=== PATIENT | female | born 1945 ===

== ENCOUNTER 2025-02-19 08:45 | Inpatient (IN) | payer OTHER ==
[~2025-02-19] VITALS: Ht 180.3 cm; Wt 88.0 kg
[2025-02-19] MEDS ORDERED: JANUVIA100 MG PO (10:18)
[2025-02-19] MEDS ORDERED: LANTUS SOL100 UNIT/1 (10:19)
[2025-02-19] MEDS ORDERED: ATORVASTATIN CA10 MG PO (10:19)
[2025-02-19] MEDS ORDERED: FARXIGA10 MG PO (10:19)
[2025-02-19] MEDS ORDERED: IRBESARTAN-HCT1 EACH PO (10:20)
[2025-02-19] MEDS ORDERED: LEVO-T50 MCG PO (10:20)
[2025-02-19] MEDS ORDERED: NORVASC2.5 MG PO (10:20)
[2025-02-19] MEDS ORDERED: TOPROL XL25 M1 PO (10:21)
[2025-02-19] MEDS ORDERED: LUMIGAN2.5 M1 OP (10:21)
[2025-02-19] MEDS ORDERED: PENTOXIFYLLINE400 MG PO (10:22)
[2025-02-19 10:52] VITALS: BP 143/75
[2025-02-19 10:55] VITALS: BP 160/84
[2025-02-19 11:05] LABS: URINE APPEARANCE Cloudy; URINE BILIRRUBIN Negative (NEGATIVE); URINE BLOOD Negative; URINE COLOR Yellow; URINE KETONE Negative (NEGATIVE); URINE LEUKOCYTE Negative; URINE NITRATE Negative; URINE PROTEIN Negative (NEGATIVE); URINE UROBILINOGEN 0.2 E.U./dl
[2025-02-19 11:10] LABS: URINE BACTERIA 2111.8 uL (0.0-1933); URINE EPITHELIAL CELLS 161.7 uL (0.0-38.8); URINE WBC 14.1 uL (0.0-23.2)
[2025-02-19 11:12] LABS: URINE CAST 0.14 uL (0.0-1.40); URINE GLUCOSE 500 MG/DL (NEGATIVE); URINE RBC 0.7 uL (0.0-20.8)
[2025-02-19 11:21] LABS: BASO % 0.4 % (0.1-1.2); EOS # 0.18 (0.04-0.54); EOS % 1.9 % (0.7-7.0); LYMPH # 2.38 (1.18-3.74); LYMPH % 24.9 % (19.3-53.1); MEAN PLATELET VOLUME 11.80 fl (9.4-12.4); MONO # 0.76 (0.24-0.82); MONO % 8.0 % (4.7-12.5); NEUT # 6.14 (1.56-6.13); NEUT % 64.4 % (34.0-71.1); RED CELL DISTRIBUTION WIDTH 14.1 % (11.6-14.4)
[2025-02-19 12:23] LABS: ALT/SGPT 16.0 U/L (12-78); AST/SGOT 14.0 U/L (15-37); BILIRUBIN TOTAL 0.61 mg/dL (0.3-1.2); BUN CREA RATIO 22.0 (7.0-25.0); CREATININE SERUM 1.57 mg/dL (0.55-1.02); GFR 31.7; GLOBULINA 3.9 G/DL (2.4-3.5); GLUCOSE FASTING 100.0 mg/dL (65-100); OSMOLALITY SERUM 293.0 MOSM/KG (275-295)
[2025-02-19 12:55] LABS: INR 1.08
[2025-02-27 10:03] LABS: RH POSITIVE
[2025-02-27] MEDS ORDERED: TRANEXAMIC ACID 100MG/1ML (1000MG) AMPUL IV ONE (11:15)
[2025-02-27] MEDS ORDERED: ISOPROPYL ALCOHOL 30 ML OUNCE TOP ONE (11:15)
[2025-02-27] MEDS ORDERED: CEFAZOLIN SODIUM 1,000 MG VIAL IV ONE (11:15)
[2025-02-27] MEDS ORDERED: ONDANSETRON HCL 2 MG/ML VIAL IV PRN (12:15)
[2025-02-27] MEDS ORDERED: INSULIN LISPRO 1,000 UNIT/10 ML UNITS SUBCUTANEO PRN (15:30)
[2025-02-27] MEDS ORDERED: ACETAMINOPHEN 500 MG GEL..CAP PO PRN (15:30)
[2025-02-27] MEDS ORDERED: hydrALAZINE HCL 20 MG VIAL IV PRN (15:30)
[2025-02-27] MEDS ORDERED: DEXTROSE 50 % IN WATER 0.5 G/ML VIAL IV PRN (15:30)
[2025-02-27] MEDS ORDERED: MORPHINE SULFATE 4 MG/ML VIAL IV ONE (16:35)
[2025-02-27] MEDS ORDERED: ATORVASTATIN CALCIUM 10 MG TABLET PO SCH (17:00)
[2025-02-27] MEDS ORDERED: METOPROLOL SUCCINATE 25 MG TAB.SR.24H PO SCH (17:00)
[2025-02-27 17:42] VITALS: BP 143/75
[2025-02-27] MEDS ORDERED: MORPHINE SULFATE 4 MG/ML CARTRIDGE IV SCH (18:00)
[2025-02-27] MEDS ORDERED: CEFAZOLIN SODIUM 1,000 MG VIAL IV SCH (18:00)
[2025-02-27] MEDS ORDERED: FAMOTIDINE/PF 20 MG in 0.9 % SODIUM CHLORIDE 8 ML IV PUSH SCH (21:00)
[2025-02-27] MEDS ORDERED: ORPHENADRINE CITRATE 100 MG TABLET PO SCH (21:00)
[2025-02-27] MEDS ORDERED: GABAPENTIN 100 MG CAPSULE PO SCH (21:00)
[2025-02-28 00:04] VITALS: BP 152/81
[2025-02-28 03:10] LABS: BASO % 0.2 % (0.1-1.2); EOS # 0.01 (0.04-0.54); EOS % 0.1 % (0.7-7.0); LYMPH # 0.86 (1.18-3.74); LYMPH % 5.4 % (19.3-53.1); MEAN PLATELET VOLUME 12.10 fl (9.4-12.4); MONO # 0.49 (0.24-0.82); MONO % 3.1 % (4.7-12.5); NEUT # 14.44 (1.56-6.13); NEUT % 90.6 % (34.0-71.1); RED CELL DISTRIBUTION WIDTH 13.6 % (11.6-14.4)
[2025-02-28] MEDS ORDERED: LEVOTHYROXINE SODIUM 50 MCG TABLET PO SCH (06:00)
[2025-02-28 08:00] VITALS: BP 139/72
[2025-02-28] MEDS ORDERED: AMLODIPINE BESYLATE 2.5 MG TABLET PO SCH (09:00)
[2025-02-28] MEDS ORDERED: IRBESARTAN 150 MG TABLET PO SCH (09:00)
[2025-02-28] MEDS ORDERED: HYDROCHLOROTHIAZIDE 12.5 MG CAPSULE PO SCH (09:00)
[2025-02-28] MEDS ORDERED: RIVAROXABAN 10 MG TAB PO SCH (09:00)
[2025-02-28] MEDS ORDERED: Cyanocobalamin/Mecobalamin 1 TAB.SL SL NR (13:45)
[2025-02-28 16:05] VITALS: BP 149/63
[2025-02-28] MEDS ORDERED: SOD FERRIC GLUC COMPLX/SUCROSE 62.5 MG/5 ML AMPUL IV SCH (17:00)
[2025-03-01 02:13] VITALS: BP 140/80
[2025-03-01 02:29] LABS: BASO % 0.2 % (0.1-1.2); EOS # 0.11 (0.04-0.54); EOS % 0.7 % (0.7-7.0); LYMPH # 1.45 (1.18-3.74); LYMPH % 9.1 % (19.3-53.1); MEAN PLATELET VOLUME 11.60 fl (9.4-12.4); MONO # 1.25 (0.24-0.82); MONO % 7.8 % (4.7-12.5); NEUT # 13.05 (1.56-6.13); NEUT % 81.5 % (34.0-71.1); RED CELL DISTRIBUTION WIDTH 13.6 % (11.6-14.4)
[2025-03-01 08:00] VITALS: BP 162/77
[2025-03-01] MEDS ORDERED: Cyanocobalamin/Mecobalamin 1 TAB.SL SL SCH (09:00)
[2025-03-01] MEDS ORDERED: XARELTO10 MG PO (11:22)
[2025-03-01] MEDS ORDERED: PERCOCET 5-3251 EACH PO (11:22)
[2025-03-01] MEDS ORDERED: NORFLEX100MG PO (11:22)
[2025-03-01] MEDS ORDERED: GABAPENTIN100 MG PO (11:22)
== END 2025-03-01 13:12 | disposition home or self-care (01) | DRG 470 ==
LOC: SURH 02-27 08:45 → O/R 02-27 12:25 → OB/GYN 02-27 15:59
PROVIDERS: ADMIT Orthopaedic Surgery; ATTEND Orthopaedic Surgery
PROC: 0QUD0KZ Supplement Right Patella with Nonautologous Tissue Substitute, Open Approach (ICD-10-PCS; 2025-02-27)
PROC: 0SRC0JZ Replacement of Right Knee Joint with Synthetic Substitute, Open Approach (ICD-10-PCS; principal; 2025-02-27 11:15)
DX: M17.11 Unilateral primary osteoarthritis, right knee (principal); D62 Acute posthemorrhagic anemia; M85.661 Other cyst of bone, right lower leg; I10 Essential (primary) hypertension; E11.9 Type 2 diabetes mellitus without complications; N18.32 Chronic kidney disease, stage 3b; D63.1 Anemia in chronic kidney disease; E03.9 Hypothyroidism, unspecified; Z79.4 Long term (current) use of insulin; Z79.84 Long term (current) use of oral hypoglycemic drugs; Z74.09 Other reduced mobility